=== PATIENT | female | born 1985 | race Caucasian/White ===

== ENCOUNTER 2018-06-13 18:19 | Emergency (ER) | payer MEDICARE, OTHER ==
[~2018-06-13] VITALS: Ht 160 cm; Wt 55.8 kg
[~2018-06-13 18:19] MED LIST: BENZ100C PO; CETI10TA22 PO; GUAI600T47 PO
[2018-06-13 18:40] VITALS: BP 116/57
[2018-06-13] MEDS ORDERED: LIDOCAINE 1% Multi-Dose 20 ML VIAL. INJ ONE (19:00)
[2018-06-13] MEDS ORDERED: HYDROcodone/APAP 5/325MG 1 TAB TABLET PO ONE (19:00)
--- NOTE | 2018-06-13 19:32 | RAD ---
EXAM: 3 views right foot DATE: 06/13/2018 6:46 PM INDICATION: jumped on a rock, pain in calcaneus and nose COMPARISON: No Prior FINDINGS/ IMPRESSION: No evidence of acute fracture or dislocation. Joint spaces are preserved without significant degenerative/proliferative change. No significant soft tissue swelling. No definite retained radiopaque foreign body seen. Electronically signed by: Rcihard Valverde MD (06/13/2018 7:29 PM) [facility]
--- NOTE | 2018-06-13 19:35 | RAD ---
EXAM: Nasal bone series DATE: 06/13/2018 6:46 PM INDICATION: jumped on a rock, pain in calcaneus and nose COMPARISON: No Prior FINDINGS/ IMPRESSION: No evidence of acute fracture or dislocation. No definite paranasal sinus fluid level is seen. Electronically signed by: Richard Valverde MD (06/13/2018 7:32 PM) [facility]
[2018-06-13] MEDS ORDERED: LIDOCAINE 2% 20 ML VIAL. IJ ONE (19:45)
[2018-06-13] MEDS ORDERED: LIDOCAINE 1% PF 2 ML VIAL. INJ ONE (20:00)
--- NOTE | 2018-06-13 20:07 | PHYS DOC ---
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 She states earlier this afternoon she stepped hard on a rock and fell forward hitting her face. She denies LOC or N/V but has tenderness of her nose and a laceration on her upper lip and her foot hurts. Review of Systems Review of Systems Constitutional: Denies fever or chills Eyes: Denies change in visual acuity, redness, or eye pain HENT: Denies nasal congestion or sore throat. Reports nose bleed and nasal tenderness. Respiratory: Denies cough or shortness of breath Cardiovascular: Denies chest pain. GI: Denies abdominal pain, nausea, vomiting, bloody stools or diarrhea Musculoskeletal: Denies back pain or joint pain. Reports pain in R foot. Integument: Reports laceration to upper L lip. Neurologic: Denies headache, focal weakness or sensory changes All other systems were reviewed and found to be within normal limits, except as documented in this note. Current Medications Current Medications Current Medications Medications (Trade) Dose Ordered Sig/Leticia Start Time Stop Time Status Last Admin Dose Admin Acetaminophen/ Hydrocodone Bitart (Lortab 5/325) 1 tab 1X ONCE 06/13/18 19:00 06/13/18 19:01 DC 06/13/18 19:03 1 TAB Lidocaine HCl (Lidocaine 1% 20ml Vial) 20 ml 1X ONCE 06/13/18 19:00 06/13/18 19:01 Cancel Lidocaine HCl (Xylocaine-Mpf 1% 2ml Vial) 2 ml ONCE ONCE 06/13/18 20:00 06/13/18 20:01 DC Allergies Allergies Allergies Coded Allergies Type Severity Reaction Last Updated Verified ibuprofen Adverse Reaction Intermediate NAUSEA 04/02/16 Yes Physical Exam Physical Exam Constitutional: Well developed, well nourished, no acute distress, non-toxic appearance. HENT: Normocephalic, atraumatic, bilateral external ears normal, oropharynx moist, no oral exudates, nose normal. Upper lip laceration 1.5cm, nasal tenderness, dried blood in L nare, no septal hematoma Eyes: PERRLA, EOMI, conjunctiva normal, no discharge. Neck: Normal range of motion, no tenderness, supple, no stridor. Cardiovascular:Heart rate regular rhythm, no murmur Lungs & Thorax: Bilateral breath sounds clear to auscultation Abdomen: Bowel sounds normal, soft, no tenderness, no masses, no pulsatile masses. Skin: Warm, dry, no erythema, no rash. Laceration to upper lip. Back: No tenderness, no CVA tenderness. Extremities: No tenderness, no cyanosis, no clubbing, ROM intact, no edema. Pain in R foot. Neurologic: Alert and oriented X 3, normal motor function, normal sensory function, no focal deficits noted. Psychologic: Affect normal, judgement normal, mood normal. Current Patient Data Vital Signs Vital Signs Date Time Temp Pulse Resp B/P (MAP) Pulse Ox O2 Delivery O2 Flow Rate FiO2 06/13/18 18:40 99.0 96 18 116/57 (76) 98 Room Air 99.0 Current Patient Data Vital Signs Date Time Temp Pulse Resp B/P (MAP) Pulse Ox O2 Delivery O2 Flow Rate FiO2 06/13/18 18:40 99.0 96 18 116/57 (76) 98 Room Air 99.0 Vital Signs Date Time Temp Pulse Resp B/P (MAP) Pulse Ox O2 Delivery O2 Flow Rate FiO2 06/13/18 18:40 99.0 96 18 116/57 (76) 98 Room Air 99.0 EKG EKG [] Radiology/Procedures Radiology/Procedures Foot xray neg for acute findings. nasal bones: neg for fracture. Impressions: Sutures : L upper lip was anesthetized with 1% lidocaine (2mls) and then cleaned with normal saline and then closed with 2 sutures of 5-0 Vicryl. Pt tolerated procedure well and laceration alignment is excellent. Course & Med Decision Making Course & Med Decision Making Pertinent Labs and Imaging studies reviewed. (See chart for details) Pt had sutures to upper L lip that will dissolve. Tolerated well. Pt's foot is bruised but no signs of bony injury. Pt to f/u with PCP for wound evaluation and return if symptoms worsen at anytime. Dragon Disclaimer Dragon Disclaimer This electronic medical record was generated, in whole or in part, using a voice recognition dictation system. Suture Removal Procedure [] removed from wound. The wound was well approximated before and after procedure. Patient tolerated the procedure well. There is some crusting about the wound and no discharge from the wound. Course & Medical Decisions Pertinent Labs and Imaging studies reviewed. (See chart for details) [] Final Impression Lip laceration Facial contusion Foot contusion[] Departure Departure Impression: Primary Impression: Foot pain, right Additional Impressions: Lip laceration Facial contusion Disposition: HOME, SELF-CARE Condition: IMPROVED Referrals: BRANDON ALFARO (PCP) Patient Instructions: Absorbable Suture Repair-Brief, Facial or Scalp Contusion , [id number], Foot Contusion, [id number] Additional Instructions: The stitches placed in your mouth will dissolve. They do not need to be removed unless they are still present in 14 days. Scripts Acetaminophen With Codeine (TYLENOL WITH CODEINE #3 TABLET) 1 Each Tablet 1 TAB PO PRN Q4HRS PRN for PAIN for 5 Days, #14 TAB Prov: ANA MARIA BANSAL 06/13/18 Attending Signature Attending Signature I have reviewed the PA/BATTERY INSTALLER's note and plan of care. I was available for consultation as needed during the patient's visit in the emergency department. I agree with the clinical impression, plan, and disposition. Problem Qualifiers ANA MARIA BANSAL Jun 13, 2018 20:07 RIANA VAZQUEZ DO Jun 14, 2018 03:58
[2018-06-13] MEDS ORDERED: ACET-704 PO (20:10)
== END 2018-06-13 20:11 | disposition home or self-care (01) ==
LOC: ER 18:19
DX: S01.511A Laceration without foreign body of lip, initial encounter (principal); M79.671 Pain in right foot; Z88.8 Allergy status to other drugs, medicaments and biological substances; W18.09XA Striking against other object with subsequent fall, initial encounter; Y93.89 Activity, other specified; Y92.89 Other specified places as the place of occurrence of the external cause; Y99.8 Other external cause status
CPT/HCPCS: 12011; 70150; 73630; 99284-25